=== PATIENT | female | born 1995 | race Caucasian/White ===

== ENCOUNTER 2016-12-13 12:11 | Emergency (ER) | payer OTHER ==
[~2016-12-13] VITALS: Ht 162.6 cm; Wt 122.5 kg
[2016-12-13 12:40] VITALS: BP 123/73
[2016-12-13] MEDS ORDERED: NAPROXEN 500 MG TABLET PO STA (12:43)
[2016-12-13] MEDS ORDERED: CYCLOBENZAPRINE 10 MG TABLET. PO ONE (12:45)
[2016-12-13] MEDS ORDERED: HYDROcodone/APAP 5/325MG 1 TAB TABLET PO ONE (12:45)
[2016-12-13] MEDS ORDERED: NAPR500T8 PO (12:51)
[2016-12-13] MEDS ORDERED: CYCL10TA2 PO (12:51)
[2016-12-13] MEDS ORDERED: METH4TAB2 PO (12:51)
[2016-12-13] MEDS ORDERED: HYDR-971 PO (12:51)
--- NOTE | 2016-12-13 12:51 | PHYS DOC ---
Past Medical History Past Medical History: No Pertinent History Past Surgical History: No Surgical History Alcohol Use: None Drug Use: None Adult General Chief Complaint Chief Complaint: BACK PAIN - NO INJURY HPI HPI Patient is a 21 year old female with no significant medical history who presents with moderate pain from the left low back radiating into the left lower extremity that began yesterday. Patient denies any trauma. Denies any loss of bowel bladder function. She states she had a baby 6 weeks ago. Denies any chance she is . She said they did an epidural on her. Patient denies any headache. Review of Systems Review of Systems Constitutional: Denies fever or chills [] Eyes: Denies change in visual acuity, redness, or eye pain [] HENT: Denies nasal congestion or sore throat [] GI: Denies abdominal pain, nausea, vomiting, bloody stools or diarrhea [] : Denies dysuria or hematuria [] Musculoskeletal: Left low back pain radiating to the left lower extremity Integument: Denies rash or skin lesions [] Neurologic: Denies headache, focal weakness or sensory changes [] Endocrine: Denies polyuria or polydipsia [] Allergies Allergies Allergies Coded Allergies Type Severity Reaction Last Updated Verified No Known Drug Allergies 12/13/16 No Physical Exam Physical Exam Constitutional: Well developed, well nourished, no acute distress, non-toxic appearance. [] HENT: Normocephalic, atraumatic, bilateral external ears normal, oropharynx moist, no oral exudates, nose normal. [] Eyes: PERRLA, EOMI, conjunctiva normal, no discharge. [] Abdomen: Bowel sounds normal, soft, no tenderness, no masses, no pulsatile masses. [] Skin: Warm, dry, no erythema, no rash. [] Back: Diffuse paraspinal muscle tenderness to the left lower lumbar region, no midline tenderness, no CVA tenderness. [] Extremities: No tenderness, no cyanosis, no clubbing, ROM intact, no edema. [] Neurologic: Alert and oriented X 3, normal motor function, normal sensory function, no focal deficits noted. [] Psychologic: Affect normal, judgement normal, mood normal. [] Current Patient Data Vital Signs Vital Signs Date Time Temp Pulse Resp B/P (MAP) Pulse Ox O2 Delivery O2 Flow Rate FiO2 12/13/16 12:40 98.2 122 18 98 Room Air 98.2 EKG EKG [] Radiology/Procedures Radiology/Procedures [] Course & Med Decision Making Course & Med Decision Making Pertinent Labs and Imaging studies reviewed. (See chart for details) Patient is in the ED with left low back pain radiating to the left lower extremity, no known injury. Symptoms suspicious of sciatica. She is very tearful. She was discharged with pain medicine and muscle relaxers and instructed to follow-up with the PCP in the next 7 days. She was provided return precautions and discharged in stable condition. Dragon Disclaimer Dragon Disclaimer This electronic medical record was generated, in whole or in part, using a voice recognition dictation system. Departure Departure Impression: Primary Impression: Low back pain Additional Impression: Sciatic leg pain Disposition: HOME, SELF-CARE Condition: STABLE Referrals: UNKNOWN PCP NAME (PCP) Follow-up with your doctor in 1-2 weeks Patient Instructions: Back Pain, Adult, Sciatica Additional Instructions: You were seen for back pain with sciatica. Please take the prescribed medicines as ordered. Come back to the ED if symptoms worsen. Scripts Naproxen (NAPROXEN) 500 Mg Tablet.dr 1 TAB PO BID, #60 TAB 2 Refills Prov: RUTHIE LAFLEUR APRN 12/13/16 Methylprednisolone (MEDROL) 4 Mg Tab.ds.pk 1 PKG PO UD, #1 PKG Prov: RUTHIE LAFLEUR APRN 12/13/16 Cyclobenzaprine Hcl (CYCLOBENZAPRINE HCL) 10 Mg Tablet 1 TAB PO TID, #30 TAB Prov: RUTHIE LAFLEUR APRN 12/13/16 Hydrocodone/Apap 5-325 (NORCO 5-325 TABLET) 1 Each Tablet 1-2 TAB PO Q4-6HRS, #14 TAB Prov: RUTHIE LAFLEUR APRN 12/13/16 Problem Qualifiers Primary Impression: Low back pain Chronicity: acute Back pain laterality: left Sciatica presence: with sciatica Sciatica laterality: sciatica of left side Qualified Codes: M54.42 - Lumbago with sciatica, left side CLAUDETTEJERSONRUTHIE Alcala APRN December 13, 2016 12:51
== END 2016-12-13 13:07 | disposition home or self-care (01) ==
LOC: ER 12:29
DX: M54.42 Lumbago with sciatica, left side (principal)
CPT/HCPCS: 99284

== ENCOUNTER 2017-05-07 13:22 | Emergency (ER) | payer OTHER ==
[~2017-05-07] VITALS: Ht 165.1 cm; Wt 122.5 kg
[~2017-05-07 13:22] MED LIST: CYCL10TA2 PO; HYDR-971 PO; METH4TAB2 PO; NAPR500T8 PO
[2017-05-07 13:26] VITALS: BP 124/63
[2017-05-07] MEDS ORDERED: HYDR-971 PO (14:00)
[2017-05-07] MEDS ORDERED: AMOX500T PO (14:00)
--- NOTE | 2017-05-07 14:00 | PHYS DOC ---
Past Medical History Past Medical History: Other Additional Past Medical Histor: BLOOD CLOTS, APS Past Surgical History: Other Additional Past Surgical Histo: L LEG STENT, CVT FILTER Alcohol Use: Occasionally Drug Use: None Adult General Chief Complaint Chief Complaint: Toothache HPI HPI Patient is a 21 year old female with a history of antiphospholipid syndrome presents the ED complaining of right tooth pain 3 days. Patient states she has a dental appointment but had to be taken off her blood thinners in order to complete the procedure. Patient requesting antibiotics to prevent abscess. Patient denies fever, calf pain, nausea/vomiting, headache, dizziness, weakness , vision changes, chest pain or shortness of breath. Review of Systems Review of Systems Constitutional: Denies fever or chills [] Eyes: Denies change in visual acuity, redness, or eye pain [] HENT: Denies nasal congestion or sore throat [] Respiratory: Denies cough or shortness of breath [] Cardiovascular: No additional information not addressed in HPI [] GI: Denies abdominal pain, nausea, vomiting, bloody stools or diarrhea [] : Denies dysuria or hematuria [] Musculoskeletal: Denies back pain or joint pain [] Integument: Denies rash or skin lesions [] Neurologic: Denies headache, focal weakness or sensory changes [] Endocrine: Denies polyuria or polydipsia [] Allergies Allergies Allergies Coded Allergies Type Severity Reaction Last Updated Verified No Known Drug Allergies 12/13/16 No Physical Exam Physical Exam Constitutional: Well developed, well nourished, no acute distress, non-toxic appearance. [] HENT: Normocephalic, atraumatic, bilateral external ears normal, oropharynx moist, no oral exudates, nose normal. DENTAL CARIES TO RIGHT UPPER MOLAR. NO ABSCESS OR FLUCTANCE.[] Eyes: PERRLA, EOMI, conjunctiva normal, no discharge. [] Neck: Normal range of motion, no tenderness, supple, no stridor. [] Cardiovascular:Heart rate regular rhythm, no murmur [] Lungs & Thorax: Bilateral breath sounds clear to auscultation [] Abdomen: Bowel sounds normal, soft, no tenderness, no masses, no pulsatile masses. [] Skin: Warm, dry, no erythema, no rash. [] Back: No tenderness, no CVA tenderness. [] Extremities: No tenderness, no cyanosis, no clubbing, ROM intact, no edema. [] Neurologic: Alert and oriented X 3, normal motor function, normal sensory function, no focal deficits noted. [] Psychologic: Affect normal, judgement normal, mood normal. [] Current Patient Data Vital Signs Vital Signs Date Time Temp Pulse Resp B/P (MAP) Pulse Ox O2 Delivery O2 Flow Rate FiO2 05/07/17 13:26 98.0 93 16 94 Room Air 98.0 EKG EKG [] Course & Med Decision Making Course & Med Decision Making Will treat with amoxicillin prophylactically. Patient has taken before without complications. Will prescribe analgesics. Discussed the importance of follow-up with dentist and reasons to return to the ED. Patient understands and agrees with plan. Pertinent labs and imaging reviewed. Dragon Disclaimer Joya Disclaimer This electronic medical record was generated, in whole or in part, using a voice recognition dictation system. Departure Departure Impression: Primary Impression: Dental caries Disposition: 01 HOME, SELF-CARE Condition: STABLE Referrals: NO PCP (PCP) Patient Instructions: Dental Caries Scripts Hydrocodone/Apap 5-325 (NORCO 5-325 TABLET) 1 Each Tablet 1 TAB PO BID, #8 TAB Prov: ZOLTAN HODGE 05/07/17 Amoxicillin (AMOXICILLIN) 500 Mg Tablet 1 TAB PO TID, #30 TAB Prov: ZOLTAN HODGE 05/07/17 ZOLTAN HODGE May 07, 2017 14:00
== END 2017-05-07 14:11 | disposition home or self-care (01) ==
LOC: ER 13:22
DX: K02.9 Dental caries, unspecified (principal); K08.89 Other specified disorders of teeth and supporting structures
CPT/HCPCS: 99283

== ENCOUNTER 2018-04-26 16:18 | Emergency (ER) | payer OTHER ==
[~2018-04-26] VITALS: Ht 165.1 cm; Wt 104.3 kg
[~2018-04-26 16:18] MED LIST changes: +AMOX500T PO
[2018-04-26 18:27] VITALS: BP 125/86
[2018-04-26] MEDS ORDERED: PENICILLIN V K 250 MG TABLET. PO ONE (18:45)
[2018-04-26] MEDS ORDERED: BUPIVAC MPF-EPI 0.5%-1:200000 30 ML VIAL. INJ PRN (18:45)
[2018-04-26] MEDS ORDERED: BUPIVACAINE 0.5% 50 ML VIAL. ONE (19:06)
--- NOTE | 2018-04-26 19:07 | PHYS DOC ---
Past Medical History Past Medical History: Other Additional Past Medical Histor: aps- hypercoagulatible state, DVT Past Surgical History: Other Additional Past Surgical Histo: lle stent ibc filter Alcohol Use: None Drug Use: None Adult General Chief Complaint Chief Complaint: DENTAL PROBLEM HPI HPI Patient is a 22 year old [f__sex] who presents with [] Review of Systems Review of Systems Constitutional: Denies fever or chills [] Eyes: Denies change in visual acuity, redness, or eye pain [] HENT: Denies nasal congestion or sore throat [] Respiratory: Denies cough or shortness of breath [] Cardiovascular: No additional information not addressed in HPI [] GI: Denies abdominal pain, nausea, vomiting, bloody stools or diarrhea [] : Denies dysuria or hematuria [] Musculoskeletal: Denies back pain or joint pain [] Integument: Denies rash or skin lesions [] Neurologic: Denies headache, focal weakness or sensory changes [] Endocrine: Denies polyuria or polydipsia [] All other systems were reviewed and found to be within normal limits, except as documented in this note. Current Medications Current Medications Current Medications Medications (Trade) Dose Ordered Sig/Barbie Start Time Stop Time Status Last Admin Dose Admin Bupivacaine HCl (Marcaine 0.5%) 50 ml 1X ONCE 04/26/18 19:15 04/26/18 19:16 DC Bupivacaine HCl/ Epinephrine Bitart (Sensorcain-Mpf Epi 0.5%-[id number]) 30 ml PRN 1X PRN 04/26/18 18:45 Cancel Penicillin V Potassium (Veetid) 500 mg 1X ONCE 04/26/18 18:45 04/26/18 18:46 DC Allergies Allergies Allergies Coded Allergies Type Severity Reaction Last Updated Verified No Known Drug Allergies 12/13/16 No Physical Exam Physical Exam Constitutional: Well developed, well nourished, no acute distress, non-toxic appearance. [] HENT: Normocephalic, atraumatic, bilateral external ears normal, oropharynx moist, no oral exudates, nose normal. [] Eyes: PERRLA, EOMI, conjunctiva normal, no discharge. [] Neck: Normal range of motion, no tenderness, supple, no stridor. [] Cardiovascular:Heart rate regular rhythm, no murmur [] Lungs & Thorax: Bilateral breath sounds clear to auscultation [] Abdomen: Bowel sounds normal, soft, no tenderness, no masses, no pulsatile masses. [] Skin: Warm, dry, no erythema, no rash. [] Back: No tenderness, no CVA tenderness. [] Extremities: No tenderness, no cyanosis, no clubbing, ROM intact, no edema. [] Neurologic: Alert and oriented X 3, normal motor function, normal sensory function, no focal deficits noted. [] Psychologic: Affect normal, judgement normal, mood normal. [] Current Patient Data Vital Signs Vital Signs Date Time Temp Pulse Resp B/P (MAP) Pulse Ox O2 Delivery O2 Flow Rate FiO2 04/26/18 18:27 98.6 77 18 125/86 (99) 100 Room Air 98.6 EKG EKG [] Radiology/Procedures Radiology/Procedures [] Course & Med Decision Making Course & Med Decision Making Pertinent Labs and Imaging studies reviewed. (See chart for details) [] Dragon Disclaimer Dragon Disclaimer This electronic medical record was generated, in whole or in part, using a voice recognition dictation system. Departure Departure Impression: Primary Impression: Dentalgia Additional Impression: Dental caries Disposition: HOME, SELF-CARE Condition: IMPROVED Referrals: NO PCP (PCP) Patient Instructions: Dental Caries, Toothache-Brief Scripts Oxycodone/Apap 5-325 (PERCOCET 5-325 MG TABLET) 1 Each Tablet 0.5 TAB PO PRN Q6HRS PRN for PAIN, #6 TAB 0 Refills Prov: GIDEON SINGH DO 04/26/18 Penicillin V Potassium (PENICILLIN V POTASSIUM) 500 Mg Tablet 1 TAB PO QID, #40 TAB Prov: GIDEON SINGH DO 04/26/18 Chlorhexidine Gluconate (PERIDEX) 15 Ml Mouthwash 15 ML PO BID, #946 ML Prov: GIDEON SINGH DO 04/26/18 Problem Qualifiers GIDEON SINGH DO Apr 26, 2018 19:07
[2018-04-26] MEDS ORDERED: BUPIVACAINE 0.5% 50 ML VIAL. IJ ONE (19:15)
[2018-04-26] MEDS ORDERED: CHLO15MO2 PO (19:26)
[2018-04-26] MEDS ORDERED: OXYC-323 PO (19:26)
[2018-04-26] MEDS ORDERED: PENI500T PO (19:26)
== END 2018-04-26 19:30 | disposition home or self-care (01) ==
LOC: ER 16:18
DX: K08.89 Other specified disorders of teeth and supporting structures (principal); K02.9 Dental caries, unspecified; Z86.718 Personal history of other venous thrombosis and embolism
CPT/HCPCS: 96372; 99283; J3490